=== PATIENT | male | born 1995 | race Caucasian/White ===

== ENCOUNTER 2017-12-12 17:51 | Emergency (ER) | payer OTHER ==
[~2017-12-12] VITALS: Ht 172.7 cm; Wt 104.3 kg
[2017-12-12 17:54] VITALS: BP 111/69
--- NOTE | 2017-12-12 18:00 | NUR ---
PT SENT TO LOBBY TO WAIT FOR A BED/CHAIR.
--- NOTE | 2017-12-12 18:18 | NUR ---
PT TAKEN TO CHAIR B VIA W/C
--- NOTE | 2017-12-12 18:30 | NUR ---
PT BIB FAMILY WITH LEFT LOWER BACK PAIN X1 DAY; PT STATES HE WAS IN THE SHOWER YESTERDAY AND BENT OVER AND HEARD A POP AND HAD A GRADUAL ONSET OF BACK; WORSENING WITH STANDING OR WALKING HX HERNIATED DISK 1 YEAR AGO WITH LIFTING BOXES AT WORK . DENIES N/V/D; SKIN IS PINK/WARM/DRY; AAOX4 WITH EVEN AND STEADY GAIT; LUNGS CLEAR BL; HR EVEN AND REGULAR; PT DENIES ANY FEVER, CP, SOB, OR COUGH AT THIS TIME; PATIENT STATES PAIN 10/10 AT THIS TIME; VSS; PATIENTSITTING IN CHAIR B. YELITZA MARSH MADE AWARE OF PT STATUS.
[2017-12-12] MEDS ORDERED: HYDROcodone/APAP 5/325 MG 1 TAB TAB PO ONE (18:45)
--- NOTE | 2017-12-12 19:00 | NUR ---
RECEIVED REPORT FROM LAI ROWELL. TRANSFER OF CARE AT THIS TIME.
--- NOTE | 2017-12-12 19:51 | NUR ---
Dr. Pagan evaluating patient.
[2017-12-12] MEDS ORDERED: oxyCODONE/APAP 5/325 MG 1 TAB TAB PO ONE (20:00)
[2017-12-12 21:15] VITALS: BP 131/82
--- NOTE | 2017-12-12 21:15 | NUR ---
Patient discharged with v/s stable. Written and verbal after care instructions given and explained. Patient alert, oriented and verbalized understanding of instructions. Wheel Chair Assisted with to home. All questions addressed prior to discharge. ID band removed. Patient advised to follow up with PMD. Rx of NORCO 5MG-325MG, FLEXERIL 10MG AND IBUPROFEN 600MG given. Patient educated on indication of medication including possible reaction and side effects. Opportunity to ask questions provided and answered.
== END 2017-12-12 21:15 | disposition home or self-care (01) ==
LOC: MED 17:51
DX: M54.5 Low back pain (principal)
CPT/HCPCS: 99283